=== PATIENT | male | born 1995 | race Caucasian/White ===

== ENCOUNTER → 2023-04-22 | Outpatient (CLI) | payer OTHER | LOC: CANSCHCLI → COL.CARD 12:13 → COL.PUL 13:00 → COL.CARD 13:00 | DX: R06.02 Shortness of breath (principal) | CPT/HCPCS: J7674 ==

== ENCOUNTER 2023-05-15 12:35 | Outpatient (RCR) | payer SELFPAY | END 2023-05-21 14:08 | disposition home or self-care (01) | LOC: WSPT 12:35 | DX: R06.02 Shortness of breath (principal); M54.50 Low back pain, unspecified ==